=== PATIENT | male | born 1955 | race Caucasian/White ===

== ENCOUNTER 2016-05-01 06:50 | Emergency (ER) | payer OTHER ==
[~2016-05-01] VITALS: Ht 180.3 cm; Wt 103.0 kg
[~2016-05-01 06:50] MED LIST: ALLO100T PO; COLCHICINE; HYDR-3498 PO; IBUP-1542 PO; INDO25CA25 PO
[2016-05-01 06:52] VITALS: Ht 180.3 cm; Wt 103.0 kg
--- NOTE | 2016-05-01 07:22 | ERD ---
ER Documentation Chief Complaint Date/Time DATE: 05/01/16 TIME: 07:19 Chief Complaint BURNING URINATION X 1 WEEK HPI This is a 61-year-old male who presents the emergency department today complaining of painful urination for the past week. He is also reporting some right-sided testicular pain and "heat and burning in my stomach". States that he saw his doctor last week and told them that they did not do anything. States that he had regular lab work done for his annual physical. Denies any health problems. Denies any fevers or chills, nausea or vomiting. ROS All systems reviewed and are negative except as per history of present illness. Medications Home Meds Active Scripts Ibuprofen* (Motrin*) 600 Mg Tab, 600 MG PO Q6, #30 TAB Prov:ROSIBEL DAY PA-C 05/01/16 Acetaminophen* (Tylophen*) 500 Mg Capsule, 1 CAP PO Q6H Y for PAIN AND OR ELEVATED TEMP, #30 CAP Prov:ROSIBEL DAY PA-C 05/01/16 Hydrocodone Bit-Acetaminophen* ([place]*) 5-325 Mg Tab, 1 TAB PO Q6 Y for PAIN, # 20 TAB Prov:NILDA MARTINI [employer]PERATOR 08/31/15 Ibuprofen* (Motrin*) 600 Mg Tab, 600 MG PO Q6H Y for PAIN AND OR ELEVATED TEMP, #30 TAB Prov:NILDA MARTINI [employer] OPERATOR 08/31/15 Reported Medications [Colchicine] No Conflict Check 10/02/15 Indomethacin* (Indocin*) Unknown Strength Capsule, PO Q8, CAP 08/31/15 Allopurinol* (Allopurinol*) Unknown Strength Tablet, PO DAILY, TAB 08/31/15 Allergies Allergies: Coded Allergies: Penicillins (Verified Allergy, Unknown, 08/31/15) PMhx/Soc History of Surgery: No Anesthesia Reaction: No Hx Neurological Disorder: No Hx Respiratory Disorders: No Hx Cardiac Disorders: No Hx Psychiatric Problems: No Hx Miscellaneous Medical Probl: No Hx Alcohol Use: No Hx Substance Use: No Hx Tobacco Use: No Physical Exam Vitals Vital Signs Date Time Temp Pulse Resp B/P Pulse Ox O2 Delivery O2 Flow Rate FiO2 05/01/16 06:52 98.1 74 18 145/87 96 Physical Exam Const: No acute distress Head: Atraumatic Eyes: Normal Conjunctiva ENT: Normal External Ears, Nose and Mouth. Neck: Full range of motion..~ No meningismus. Resp: Clear to auscultation bilaterally Cardio: Regular rate and rhythm, no murmurs Abd: Soft, non tender, non distended. Normal bowel sounds. No right lower quadrant pain. No left lower quadrant pain. : Uncircumcised penis with no purulent discharge. Right-sided testicular tenderness. Left-sided testicle nontender. No erythema or warmth. No swelling. Testicles descended bilaterally. Skin: No petechiae or rashes Back: No midline or flank tenderness Ext: No cyanosis, or edema Neur: Awake and alert Psych: Normal Mood and Affect Results 24 hrs Laboratory Tests Test 05/01/16 07:31 Bedside Urine Blood Negative Bedside Urine Glucose (UA) Negative Bedside Urine Ketones (LAB) Negative Bedside Urine Leukocyte Esterase (L Negative Bedside Urine Nitrite (LAB) Negative Bedside Urine Protein (LAB) Negative Bedside Urine pH (LAB) 7.0 DIAGNOSTIC IMAGING REPORT Patient: ROBIN AYALA : 1955 Age: 61 Sex: M MR #: [id number] DOS: 05/01/16 0000 Ordering MD: ROSIBEL DAY PA-C Location: REPLACED BY [facility] Room/Bed: PROCEDURE: Scrotal ultrasound CLINICAL INDICATION: Testicular pain TECHNIQUE: Multiple noriega scale, color Doppler, and spectral Doppler images of the scrotum were obtained. Images were reviewed on a high-resolution PACS workstation. COMPARISON: None FINDINGS: The right testes measures 4.1 x 2 x 2.9 cm and the left testes measures 4.2 x 2.3 x 3.1 cm. The testes are normal in size and echogenicity with normal color flow. The right epididymis measures 10.5 x 13.2 x 9.5 mm and the left epididymis measures 6.5 x 11.8 x 8.2 mm. The epididymis bilaterally are normal in size and echogenicity. Small bilateral hydroceles are seen, right greater than left. No varicocele is identified. IMPRESSION: Small bilateral hydroceles. RPTAT: HPNM Anish aBbin Physician Date Time Electronically viewed and signed by Anish Babin Physician on 05/01/2016 08 :34 / CC: ROSIBEL DAY PA-C Procedures/MDM This is a 61-year-old male who presents the emergency department today complaining of painful urination for the past week and right-sided testicular pain. He is also complaining of "heat" in his stomach. On physical exam patient has no abdominal pain. Did not feel he requires an abdominal workup. I did obtain a UA and testicular ultrasound however given the patient's other stated complaints. UA is negative for infection Testicular ultrasound shows small bilateral hydroceles. There is no varicocele identified. There is normal Doppler flow. Low suspicion for epididymitis, orchitis, testicular torsion. Patient had no abdominal pain on physical exam. I do not feel the patient requires laboratory workup or imaging of his abdomen. Low suspicion for acute surgical abdomen. Patient declined pain medication here in the emergency department. We will give him a prescription for Tylenol and Motrin for home. I have explained all the results of the patient. I have explained him that he needs to follow-up with his primary care physician or his clinic about his laboratory results and the blood work that he had done last week. I have also instructed the patient to get further evaluation for possible prostate abnormalities. Patient indicated prior to discharge that he feels very nervous. I do not feel the patient requires a prescription for antianxiety medications at this time. I have instructed him to follow-up and notify his primary care clinic for that. Patient understood. At this time the patient is stable for discharge and outpatient management. Patient should follow up with their PCP in the next 1-2 days. They may return to the emergency department sooner for any persistent or worsening of symptoms. Patient understood and agreed with the plan. Discussed the patient with Dr. Wise and he is in agreement with the plan. Departure Diagnosis: Primary Impression: Dysuria Additional Impression: Testicular pain Condition: Fair ROSIBEL DAY PA-C May 01, 2016 07:21
[2016-05-01 07:28] LABS: URINE BLOOD (Dip) POC Negative (NEGATIVE)
--- NOTE | 2016-05-01 08:35 | RADRPT ---
PROCEDURE: Scrotal ultrasound CLINICAL INDICATION: Testicular pain TECHNIQUE: Multiple noriega scale, color Doppler, and spectral Doppler images of the scrotum were obt ained. Images were reviewed on a high-resolution PACS workstation. COMPARISON: None FINDINGS: The right testes measures 4.1 x 2 x 2.9 cm and the left testes measures 4.2 x 2.3 x 3.1 cm. The test es are normal in size and echogenicity with normal color flow. The right epididymis measures 10.5 x 13.2 x 9.5 mm and the left epididymis measures 6.5 x 11.8 x 8.2 mm. The epididymis bilaterally are normal in size and echogenicity. Small bilateral hydroceles are seen, right greater than left. No v aricocele is identified. IMPRESSION: Small bilateral hydroceles. RPTAT: HPNM Physician Shila Date Time Electronically viewed and signed by Physician Shila on 05/01/2016 08:34 /
[2016-05-01] MEDS ORDERED: IBUP-1542 PO (08:58)
[2016-05-01] MEDS ORDERED: ACET500C5 PO (08:58)
== END 2016-05-01 09:25 | disposition home or self-care (01) ==
LOC: FTE 06:50
DX: R30.0 Dysuria (principal)
CPT/HCPCS: 76870; 81003; Z7502

== ENCOUNTER 2017-07-31 04:38 | Emergency (ER) | END 2017-07-31 05:30 | disposition home or self-care (01) ==

== ENCOUNTER 2018-10-21 12:20 | Emergency (ER) | payer OTHER ==
[~2018-10-21] VITALS: Ht 175.3 cm; Wt 105.9 kg
[~2018-10-21 12:20] MED LIST changes: +ACET500C5 PO; +BEN50 PO; +FAMO-96 PO; +INDO-39 PO; +INDO25CA16 PO; -INDO25CA25 PO; +PRED20TA PO; +TRAM50TA2 PO
[2018-10-21 12:26] VITALS: BP 138/77; PULSE 70; RESP 20; Ht 175.3 cm; Wt 105.9 kg
[2018-10-21] MEDS ORDERED: KETOROLAC 30 MG INJ IM STA (12:45)
== END 2018-10-21 14:48 | disposition home or self-care (01) ==
LOC: FTE 12:20
DX: M54.5 Low back pain (principal)
CPT/HCPCS: 72100; 96372; J1885; Z7502